=== PATIENT | female | born 1985 | race Caucasian/White ===

== ENCOUNTER 2019-02-26 14:08 | Inpatient (IN) | payer OTHER ==
[2019-02-26] MEDS: LACTATED RINGER'S 1,000 ML IV ×2 (14:54→23:00)
[2019-02-26 14:59] LABS: ADD MAN DIFF? NO
[2019-02-26 15:01] LABS: WHITE BLOOD COUNT 7.4 10^3/ul (4.8-10.8)
[2019-02-26 15:01] LABS: BASOPHILS % 0.3 % (0.0-2.0); EOSINOPHILS # 0.1 10^3/ul (0.0-0.5); EOSINOPHILS % 1.2 % (0.0-7.0); HEMATOCRIT 33.7 % (37.0-47.0); HEMOGLOBIN 11.3 g/dl (12.0-16.0); LYMPHOCYTES # 1.5 10^3/ul (0.8-2.9); LYMPHOCYTES % 19.6 % (15.0-51.0); MEAN CORPUSCULAR HGB CONC 33.5 g/dl (32.0-37.0); MEAN CORPUSCULAR VOLUME 83.6 fl (82.0-101.0); MEAN PLATELET VOLUME 10.1 fl (7.4-10.4); MONOCYTE # 0.4 10^3/ul (0.3-0.9); MONOCYTES % 5.4 % (0.0-11.0); NEUTROPHIL # 5.4 10^3/ul (1.6-7.5); NEUTROPHILS % 72.8 % (39.0-77.0); PLATELET COUNT 352 10^3/UL (140-415); RED BLOOD COUNT 4.03 10^6/ul (4.20-5.40); RED CELL DISTRIBUTION WIDTH 12.7 % (11.5-14.5)
[2019-02-26 15:21] LABS: INR 0.86; PARTIAL THROMBOPLASTIN TIME 28.9 Sec (23.0-35.0); PROTIME 11.8 Sec (11.9-14.9); PT RATIO 0.9
[2019-02-26 15:22] LABS: ALANINE AMINOTRANSFERASE 121 IU/L (13-69); ALBUMIN 3.4 g/dl (3.3-4.9); ALBUMIN/GLOBULIN RATIO 0.94; ALKALINE PHOSPHATASE 187 IU/L (42-121); ANION GAP 8 (5-13); ASPARTATE AMINO TRANSFERASE 95 IU/L (15-46); BILIRUBIN,INDIRECT 0.4 mg/dl (0-1.1); BILIRUBIN,TOTAL 0.4 mg/dl (0.2-1.3); BLOOD UREA NITROGEN 6 mg/dl (7-20); CALCIUM 8.8 mg/dl (8.4-10.2); CARBON DIOXIDE 21 mmol/L (21-31); CHLORIDE 108 mmol/L (97-110); CREATININE 0.48 mg/dl (0.44-1.00); Estimated GFR > 60 mL/min (>60); GLUCOSE 91 mg/dl (70-220); POTASSIUM 3.7 mmol/L (3.5-5.1); SODIUM 137 mmol/L (135-144); URIC ACID 4.4 mg/dl (3.1-7.9)
[2019-02-27] MEDS: URSODIOL 300 MG CAP PO ×4 (01:06→22:25)
[2019-02-27 06:10] LABS: ADD MAN DIFF? NO
[2019-02-27 06:14] LABS: WHITE BLOOD COUNT 6.5 10^3/ul (4.8-10.8)
[2019-02-27 06:14] LABS: BASOPHILS % 0.6 % (0.0-2.0); EOSINOPHILS # 0.1 10^3/ul (0.0-0.5); EOSINOPHILS % 2.1 % (0.0-7.0); HEMATOCRIT 31.4 % (37.0-47.0); HEMOGLOBIN 10.6 g/dl (12.0-16.0); LYMPHOCYTES # 1.9 10^3/ul (0.8-2.9); LYMPHOCYTES % 28.4 % (15.0-51.0); MEAN CORPUSCULAR HEMOGLOBIN 28.8 pg (29.0-33.0); MEAN CORPUSCULAR HGB CONC 33.8 g/dl (32.0-37.0); MEAN CORPUSCULAR VOLUME 85.3 fl (82.0-101.0); MEAN PLATELET VOLUME 10.1 fl (7.4-10.4); MONOCYTE # 0.5 10^3/ul (0.3-0.9); MONOCYTES % 7.4 % (0.0-11.0); NEUTROPHILS % 60.7 % (39.0-77.0); PLATELET COUNT 327 10^3/UL (140-415); RED BLOOD COUNT 3.68 10^6/ul (4.20-5.40); RED CELL DISTRIBUTION WIDTH 12.7 % (11.5-14.5)
[2019-02-27 06:33] LABS: ALANINE AMINOTRANSFERASE 124 IU/L (13-69); ALBUMIN/GLOBULIN RATIO 0.88; ALKALINE PHOSPHATASE 173 IU/L (42-121); ANION GAP 6 (5-13); ASPARTATE AMINO TRANSFERASE 99 IU/L (15-46); BILIRUBIN,INDIRECT 0.3 mg/dl (0-1.1); BILIRUBIN,TOTAL 0.3 mg/dl (0.2-1.3); BLOOD UREA NITROGEN 8 mg/dl (7-20); CALCIUM 8.6 mg/dl (8.4-10.2); CARBON DIOXIDE 24 mmol/L (21-31); CHLORIDE 108 mmol/L (97-110); Estimated GFR > 60 mL/min (>60); GLUCOSE 103 mg/dl (70-220); POTASSIUM 3.8 mmol/L (3.5-5.1); SODIUM 138 mmol/L (135-144); TOTAL PROTEIN 6.4 g/dl (6.1-8.1)
[2019-02-27 06:34] LABS: INR 0.83; PROTIME 11.5 Sec (11.9-14.9); PT RATIO 0.9
[2019-02-27 06:35] LABS: PARTIAL THROMBOPLASTIN TIME 27.7 Sec (23.0-35.0)
[2019-02-27 06:59] LABS: URIC ACID 4.1 mg/dl (3.1-7.9)
[2019-02-27] MEDS: LACTATED RINGER'S 1,000 ML IV ×2 (07:39→15:57)
[2019-02-27] MEDS: PRENATAL VITAMIN PO (09:04)
[2019-02-27 17:15] LABS: RAPID PLASMA REAGIN REACTIVE (NR)
[2019-02-27] MEDS: AMPICILLIN 2 GM/NS (PMX) 100 ML IVPB ×2 (19:00→21:25)
[2019-02-27] MEDS: BETAMET NA PHOS/AC(6 MG/ML) 2 ML INJ SYG IM (20:27)
[2019-02-27 20:53] LABS: HEPATITIS C VIRAL ANTIBODY NEGATIVE (NEGATIVE)
[2019-02-27 20:53] LABS: HIV 1&2 ANTIBODY NEGATIVE (NEGATIVE)
[2019-02-28] MEDS: LACTATED RINGER'S 1,000 ML IV ×3 (01:06→18:19)
[2019-02-28] MEDS: AMPICILLIN 1 GM/NS (PMX) 50 ML IVPB ×2 (01:06→05:03)
[2019-02-28] MEDS: URSODIOL 300 MG CAP PO ×3 (06:07→21:00)
[2019-02-28 08:47] LABS: ADD UMIC NO; UR ASCORBIC ACID NEGATIVE (NEGATIVE); UR BILIRUBIN (Dip) NEGATIVE (NEGATIVE); UR BLOOD (Dip) NEGATIVE (NEGATIVE); UR CLARITY CLEAR (CLEAR); UR COLOR YELLOW (YELLOW); UR GLUCOSE (Dip) NEGATIVE (NEGATIVE); UR KETONES (Dip) 1+ mg/dL (NEGATIVE); UR LEUKOCYTE ESTERASE (Dip) NEGATIVE Leu/ul (NEGATIVE); UR NITRITE (Dip) NEGATIVE (NEGATIVE); UR SPECIFIC GRAVITY (Dip) 1.014 (1.003-1.030); UR TOTAL PROTEIN (Dip) NEGATIVE (NEGATIVE); UR UROBILINOGEN (Dip) NEGATIVE (NEGATIVE)
[2019-02-28] MEDS: PRENATAL VITAMIN PO (09:06)
[2019-02-28] MEDS: BETAMET NA PHOS/AC(6 MG/ML) 2 ML INJ SYG IM (21:01)
[2019-03-01 16:36] LABS: FLUORESCENT TREPONEMAL AB REACTIVE (NON-REACTIVE)
[2019-03-02 11:02] LABS: CHENODEOXYCHOLIC ACID 3.8 umol/L (< OR = 3.1); CHOLIC ACID 8.4 umol/L (< OR = 1.8); DEOXYCHOLIC ACID 0.6 umol/L (< OR = 2.4); TOTAL BILE ACIDS 12.8 umol/L (< OR = 6.8)
== END 2019-02-28 22:00 | disposition home or self-care (01) | DRG 831 ==
LOC: OBT 14:08 → PP1 02-27 00:39 → L-D 14:08 → OBT 16:30 → L-D 16:30
DX: O26.613 Liver and biliary tract disorders in pregnancy, third trimester (principal); K83.1 Obstruction of bile duct; O36.8130 Decreased fetal movements, third trimester, not applicable or unspecified; Z3A.34 34 weeks gestation of pregnancy
CPT/HCPCS: 76818; 80053; 81003; 83789; 84560; 85025; 85384; 85610; 85730; 86592; 86703; 86803; 87081

== ENCOUNTER 2019-03-06 12:07 | Inpatient (IN) | payer OTHER ==
[2019-03-06] MEDS ORDERED: LACTATED RINGER'S 1,000 ML IV (12:26)
[2019-03-06] MEDS ORDERED: CARBOPROST 250 MCG INJ IM (12:30)
[2019-03-06] MEDS ORDERED: IBUPROFEN 600 MG TAB PO (12:30)
[2019-03-06] MEDS ORDERED: METHYLERGONOVINE 0.2 MG INJ IM (12:30)
[2019-03-06] MEDS ORDERED: LIDOCAINE 1% (MPF) 30 ML INJ INJ (12:30)
[2019-03-06] MEDS ORDERED: MISOPROSTOL 200 MCG TAB PR (12:30)
[2019-03-06] MEDS ORDERED: OXYTOCIN 30 UNITS/LR 500 ML IV (12:30)
[2019-03-06] MEDS ORDERED: BUTORPHANOL 2 MG INJ IV (12:30)
[2019-03-06] MEDS: LACTATED RINGER'S 1,000 ML IV ×2 (13:22→20:02)
[2019-03-06] MEDS: MISOPROSTOL 50 MCG CAPSULE PO ×2 (14:25→20:05)
[2019-03-06 14:43] LABS: ADD MAN DIFF? NO
[2019-03-06 14:45] LABS: BASOPHILS % 0.3 % (0.0-2.0); EOSINOPHILS # 0.3 10^3/ul (0.0-0.5); EOSINOPHILS % 4.2 % (0.0-7.0); HEMATOCRIT 33.5 % (37.0-47.0); HEMOGLOBIN 11.1 g/dl (12.0-16.0); LYMPHOCYTES # 1.6 10^3/ul (0.8-2.9); LYMPHOCYTES % 21.3 % (15.0-51.0); MEAN CORPUSCULAR HEMOGLOBIN 28.2 pg (29.0-33.0); MEAN CORPUSCULAR HGB CONC 33.1 g/dl (32.0-37.0); MEAN PLATELET VOLUME 10.1 fl (7.4-10.4); MONOCYTE # 0.6 10^3/ul (0.3-0.9); MONOCYTES % 8.3 % (0.0-11.0); NEUTROPHILS % 65.2 % (39.0-77.0); PLATELET COUNT 363 10^3/UL (140-415); RED BLOOD COUNT 3.94 10^6/ul (4.20-5.40)
[2019-03-06 14:45] LABS: WHITE BLOOD COUNT 7.6 10^3/ul (4.8-10.8)
[2019-03-06 15:04] LABS: INR 0.88; PT RATIO 0.9
[2019-03-06 15:05] LABS: PARTIAL THROMBOPLASTIN TIME 26.3 Sec (23.0-35.0)
[2019-03-06 15:15] LABS: ALANINE AMINOTRANSFERASE 60 IU/L (13-69); ALBUMIN 3.6 g/dl (3.3-4.9); ALBUMIN/GLOBULIN RATIO 1.05; ALKALINE PHOSPHATASE 152 IU/L (42-121); ANION GAP 8 (5-13); ASPARTATE AMINO TRANSFERASE 31 IU/L (15-46); BILIRUBIN,INDIRECT 0.4 mg/dl (0-1.1); BILIRUBIN,TOTAL 0.4 mg/dl (0.2-1.3); BLOOD UREA NITROGEN 10 mg/dl (7-20); CALCIUM 9.2 mg/dl (8.4-10.2); CARBON DIOXIDE 23 mmol/L (21-31); CHLORIDE 107 mmol/L (97-110); CREATININE 0.48 mg/dl (0.44-1.00); Estimated GFR > 60 mL/min (>60); GLUCOSE 92 mg/dl (70-220); SODIUM 138 mmol/L (135-144)
[2019-03-06 15:44] LABS: HEPATITIS B SURFACE ANTIGEN NEGATIVE (NEGATIVE)
[2019-03-07] MEDS: MISOPROSTOL 50 MCG CAPSULE PO (00:30)
[2019-03-07] MEDS: LACTATED RINGER'S 1,000 ML IV ×2 (04:09→07:12)
[2019-03-07] MEDS: BUTORPHANOL 2 MG INJ IV (07:00)
[2019-03-07] MEDS ORDERED: FENTAnyl 2MCG/ML-ROPIV 0.2% 100 ML (07:28)
[2019-03-07] MEDS ORDERED: FENTAnyl 2MCG/ML-ROPIV 0.2% 100 ML BAG EPI (08:00)
[2019-03-07] MEDS ORDERED: NALOXONE (0.4 MG/ML) INJ IV (08:00)
[2019-03-07] MEDS: OXYTOCIN 30 UNITS/LR 500 ML IV ×3 (09:21→20:13)
[2019-03-07] MEDS ORDERED: METHYLERGONOVINE 0.2 MG INJ IM (10:00)
[2019-03-07] MEDS ORDERED: CARBOPROST 250 MCG INJ IM (10:00)
[2019-03-07] MEDS ORDERED: OXYTOCIN 30 UNITS/LR 500 ML IV (10:00)
[2019-03-07] MEDS ORDERED: NACL 0.9% 3 ML SYG IV (10:00)
[2019-03-07] MEDS ORDERED: ONDANSETRON 4 MG INJ IV (10:00)
[2019-03-07] MEDS ORDERED: OXYCODONE/ASPIRIN (4.88/325) TAB PO ×2 (10:00)
[2019-03-07] MEDS ORDERED: ACETAMINOPHEN 325 MG TAB PO (10:00)
[2019-03-07] MEDS ORDERED: MISOPROSTOL 200 MCG TAB PR (10:00)
[2019-03-07] MEDS: LANOLIN HPA 1 PKT TOP (11:47)
[2019-03-07] MEDS: IBUPROFEN 600 MG TAB PO ×2 (11:47→17:52)
[2019-03-07] MEDS: WITCH HAZEL/GLYCERIN PAD PR (11:48)
[2019-03-07 22:53] LABS: RAPID PLASMA REAGIN REACTIVE (NR)
[2019-03-08] MEDS: IBUPROFEN 600 MG TAB PO ×4 (06:00→17:52)
[2019-03-08 08:10] LABS: ADD MAN DIFF? NO
[2019-03-08 08:15] LABS: BASOPHILS % 0.4 % (0.0-2.0); EOSINOPHILS # 0.1 10^3/ul (0.0-0.5); EOSINOPHILS % 1.5 % (0.0-7.0); HEMATOCRIT 32.5 % (37.0-47.0); HEMOGLOBIN 10.6 g/dl (12.0-16.0); LYMPHOCYTES % 21.5 % (15.0-51.0); MEAN CORPUSCULAR HEMOGLOBIN 27.6 pg (29.0-33.0); MEAN CORPUSCULAR HGB CONC 32.6 g/dl (32.0-37.0); MEAN CORPUSCULAR VOLUME 84.6 fl (82.0-101.0); MEAN PLATELET VOLUME 10.2 fl (7.4-10.4); MONOCYTE # 0.6 10^3/ul (0.3-0.9); MONOCYTES % 6.4 % (0.0-11.0); NEUTROPHIL # 6.4 10^3/ul (1.6-7.5); NEUTROPHILS % 69.3 % (39.0-77.0); PLATELET COUNT 292 10^3/UL (140-415); RED BLOOD COUNT 3.84 10^6/ul (4.20-5.40); RED CELL DISTRIBUTION WIDTH 13.1 % (11.5-14.5)
[2019-03-08 08:15] LABS: WHITE BLOOD COUNT 9.3 10^3/ul (4.8-10.8)
[2019-03-09] MEDS: IBUPROFEN 600 MG TAB PO ×4 (00:32→18:18)
[2019-03-09 15:45] LABS: HEPATITIS C VIRAL ANTIBODY NEGATIVE (NEGATIVE)
[2019-03-09 16:44] LABS: HIV 1&2 ANTIBODY NEGATIVE (NEGATIVE)
[2019-03-12 11:47] LABS: FLUORESCENT TREPONEMAL AB REACTIVE (NON-REACTIVE)
== END 2019-03-09 19:05 | disposition home or self-care (01) | DRG 805 ==
LOC: L-D 12:07 → PP1 03-07 10:55
PROC: 10E0XZZ Delivery of Products of Conception, External Approach (ICD-10-PCS; principal; 2019-03-07)
DX: O26.62 Liver and biliary tract disorders in childbirth (principal); K83.1 Obstruction of bile duct; Z37.0 Single live birth; O90.81 Anemia of the puerperium; D64.9 Anemia, unspecified; Z3A.37 37 weeks gestation of pregnancy; Z86.19 Personal history of other infectious and parasitic diseases
CPT/HCPCS: 62322; 76815; 80053; 85025; 85610; 85730; 86592; 86703; 86803; 86850; 86900; 86901; 87340; 87536; 99464